=== PATIENT | male | born 1970 | race Two or more races ===

== ENCOUNTER 2018-09-06 07:55 | Emergency (ER) | payer BC ==
[2018-09-06 08:09] VITALS: BP 129/81
--- NOTE | 2018-09-06 13:38 | UC ---
Skin Complaint HPI - HPI Summary HPI Summary: PATIENT WORKS FOR [employer]. HE FOUND A TICK ON THE LEFT SIDE OF HIS BACK OVER A WEEK AGO. REMOVED IT AND [facility] SENT IT FOR TESTING. TICK CAME BACK POSITIVE FOR BORRELIA BURGDORFERI AND ANAPLASMA PHAGOCITOPHILUM. NEGATIVE FOR BABESIA MICROTI. IT HAS BEEN ONE WEEK SINCE THE TICK WAS REMOVED. PATIENT WAS SENT BY [employer] FOR EVALUATION FOR TREATMENT. NO FEVER, BODY ACHES, RASH, HEADACHE. - History of Current Complaint Chief Complaint: UCSkin Time Seen by Provider: 09/06/18 08:14 Stated Complaint: TICK BITE Hx Obtained From: Patient Current Severity: None Pain Intensity: 0 Pain Scale Used: 0-10 Numeric Aggravating Factor(s): Nothing Associated Signs & Symptoms: Positive: Negative - Allergy/Home Medications Allergies/Adverse Reactions: Allergies Allergy/AdvReac Type Severity Reaction Status Date / Time No Known Allergies Allergy Verified 09/06/18 08:10 Home Medications: Home Medications NK [No Home Medications Reported] 09/06/18 [History Confirmed 09/06/18] PMH/Surg Hx/FS Hx/Imm Hx Previously Healthy: Yes - Surgical History Surgical History: Yes Surgery Procedure, Year, and Place: 1999- [facility] - ACL RECON. - Family History Known Family History: Positive: Non-Contributory - Social History Alcohol Use: Weekly Substance Use Type: None Smoking Status (MU): Never Smoked Tobacco Review of Systems All Other Systems Reviewed And Are Negative: Yes Constitutional: Positive: Negative Skin: Positive: Negative Respiratory: Positive: Negative Cardiovascular: Positive: Negative Gastrointestinal: Positive: Negative Musculoskeletal: Positive: Negative Neurological: Positive: Negative Physical Exam Triage Information Reviewed: Yes Appearance: Well-Appearing, No Pain Distress, Well-Nourished Vital Signs: Initial Vital Signs Temp 98.8 F 09/06/18 08:02 Pulse 58 09/06/18 08:02 Resp 18 09/06/18 08:02 BP 129/81 09/06/18 08:02 Pulse Ox 99 09/06/18 08:02 Vital Signs Reviewed: Yes Eyes: Positive: Conjunctiva Clear ENT: Positive: Hearing grossly normal, Pharynx normal, TMs normal Neck: Positive: Supple, Nontender, No Lymphadenopathy Respiratory Exam: Normal Cardiovascular Exam: Normal Abdomen Description: Positive: Soft Musculoskeletal: Positive: No Edema Neurological: Positive: Alert Psychological: Positive: Age Appropriate Behavior Skin: Negative: Rashes Course/Dx - Course Course Of Treatment: COUNSELED PT EXTENSIVELY ON LOW RISK OF [place] LYME DISEASE FROM THIS TICK DESPITE POSITIVE FOR BORRELIA AND ANAPLASMA GIVEN IT WAS ATTACHED FOR LESS THAN A DAY. BE VIGILANT OF SX OVER THE NEXT 4-6 WEEKS. PT DOES NOT MEET CRITERIA FOR PROPHYLAXIS WITH DOXY. WOULD NOT GIVE FULL TREATMENT REGIMEN GIVEN PT ASYTMPTOMATIC. ALL QUESTIONS ANSWERED AND PT COMFORTABLE WITH CAREFUL OBSERVATION AT HOME. BLOOD DRAWN FOR LYME SEROLOGY AND ANAPLASMA PCR PER PT REQUEST. - Diagnoses Provider Diagnosis: Tick bite of back Discharge - Sign-Out/Discharge Documenting (check all that apply): Patient Departure All imaging exams completed and their final reports reviewed: No Studies - Discharge Plan Condition: Stable Disposition: HOME Patient Education Materials: Tick Bite (ED) Referrals: Iza WYATT,Jonel Raman [Medical Doctor] - If Needed Raymundo Hernandez DO [Primary Care Provider] - If Needed Additional Instructions: The Infectious Disease Society of [place] (IDSA) does not generally recommend antimicrobial prophylaxis for prevention of Lyme disease after a recognized tick bite. However, in areas that are highly endemic for Lyme disease, a single dose of doxycycline may be offered to adult patients (200 mg) who are not and to children older than 8 years of age (4 mg/kg up to a maximum dose of 200 mg) when all of the following circumstances exist: CRITERIA FOR RECEIVING PROPHYLACTIC TREATMENT FOR LYME DISEASE 1) TICK ATTACHED FOR AT LEAST 36 HRS 2) TICK IS AN ADULT OR [place] DEER TICK 3) YOU LIVE IN AN AREA WHERE LYME DISEASE IS PREVALENT (i.e., [place], [place], [place], , [place] , [place], [place], [place], [place], [place], [place], [place], [place], [place]) 4) YOU HAVE NO CONTRAINDICATION TO THE MEDICATION (DOXYCYCLINE) 5) PROPHYLAXIS IS BEGUN WITHIN 72 HRS OF TICK REMOVAL SINCE YOU DO NOT MEET ALL THESE CRITERIA THERE IS NO INDICATION TO GIVE YOU PROPHYLACTIC ANTIBIOTICS. HOWEVER, 1 TICK MEANS THERE MAY HAVE BEEN OTHER TICKS OF WHICH YOU WEREN'T AWARE. SO BE VIGILANT OF YOUR SYMPTOMS AND DON'T HESITATE TO GET SEEN AGAIN IF YOU DEVELOP UNEXPLAINED FEVER, HEADACHE, JOINT PAIN, BODY ACHES, RASH OR ANY OTHER CONCERNING SYMPTOMS. Antibiotic treatment following a tick bite is not recommended as a means to prevent anaplasmosis, babesiosis, ehrlichiosis, or [place] spotted fever. There is no evidence this practice is effective, and it may simply delay onset of disease. Instead, persons who experience a tick bite should be alert for symptoms suggestive of tickborne illness and consult a physician if fever, rash, headache or other symptoms of concern develop. BLOOD DRAWN FOR LYME DISEASE AND ANAPLASMA TODAY. WE WILL CALL YOU IF YOU NEED TREATMENT. IF THE LYME SCREEN COMES BACK POSITIVE AND YOU ARE STILL ASYMPTOMATIC I WOULD RECOMMEND WAITING FOR THE CONFIRMATORY TESTING BEFORE BEING TREATED THE CONFIRMATORY TEST MAY BE NEGATIVE. I WOULD NOT RECOMMEND HAVING TICKS TESTED IT CAN RAISE UNNECESSARY CONCERN. - Billing Disposition and Condition Condition: STABLE Disposition: Home
[2018-09-08 00:51] LABS: Anaplasma phagocytophilum Negative (Negative); Ehrlichia chaffeensis Negative (Negative); Ehrlichia ewingii/canis Negative (Negative); Ehrlichia muris eauclairensis Negative (Negative)
--- NOTE | 2018-09-08 07:30 | UC ---
- Progress Note Progress Note: Non-urgently actionable. F/u PCP as scheduled. Course/Dx - Diagnoses Provider Diagnoses: Tick bite of back Discharge - Sign-Out/Discharge Documenting (check all that apply): Post-Discharge Follow Up All imaging exams completed and their final reports reviewed: No Studies - Discharge Plan Condition: Stable Disposition: HOME Patient Education Materials: Tick Bite (ED) Referrals: Iza WYATT,Jonel Raman [Medical Doctor] - If Needed Raymundo Hernandez DO [Primary Care Provider] - If Needed Additional Instructions: The Infectious Disease Society [place] (IDSA) does not generally recommend antimicrobial prophylaxis for prevention of Lyme disease after a recognized tick bite. However, in areas that are highly endemic for Lyme disease, a single dose of doxycycline may be offered to adult patients (200 mg) who are not and to children older than 8 years of age (4 mg/kg up to a maximum dose of 200 mg) when all of the following circumstances exist: CRITERIA FOR RECEIVING PROPHYLACTIC TREATMENT FOR LYME DISEASE 1) TICK ATTACHED FOR AT LEAST 36 HRS 2) TICK IS AN ADULT OR [place] DEER TICK 3) YOU LIVE IN AN AREA WHERE LYME DISEASE IS PREVALENT (i.e., [place], [place], [place], , [place] , [place], [place], [place], [place], [place], [place], [place], [place], [place]) 4) YOU HAVE NO CONTRAINDICATION TO THE MEDICATION (DOXYCYCLINE) 5) PROPHYLAXIS IS BEGUN WITHIN 72 HRS OF TICK REMOVAL SINCE YOU DO NOT MEET ALL THESE CRITERIA THERE IS NO INDICATION TO GIVE YOU PROPHYLACTIC ANTIBIOTICS. HOWEVER, 1 TICK MEANS THERE MAY HAVE BEEN OTHER TICKS OF WHICH YOU WEREN'T AWARE. SO BE VIGILANT OF YOUR SYMPTOMS AND DON'T HESITATE TO GET SEEN AGAIN IF YOU DEVELOP UNEXPLAINED FEVER, HEADACHE, JOINT PAIN, BODY ACHES, RASH OR ANY OTHER CONCERNING SYMPTOMS. Antibiotic treatment following a tick bite is not recommended as a means to prevent anaplasmosis, babesiosis, ehrlichiosis, or [place] spotted fever. There is no evidence this practice is effective, and it may simply delay onset of disease. Instead, persons who experience a tick bite should be alert for symptoms suggestive of tickborne illness and consult a physician if fever, rash, headache or other symptoms of concern develop. BLOOD DRAWN FOR LYME DISEASE AND ANAPLASMA TODAY. WE WILL CALL YOU IF YOU NEED TREATMENT. IF THE LYME SCREEN COMES BACK POSITIVE AND YOU ARE STILL ASYMPTOMATIC I WOULD RECOMMEND WAITING FOR THE CONFIRMATORY TESTING BEFORE BEING TREATED THE CONFIRMATORY TEST MAY BE NEGATIVE. I WOULD NOT RECOMMEND HAVING TICKS TESTED IT CAN RAISE UNNECESSARY CONCERN. - Billing Disposition and Condition Condition: STABLE Disposition: Home
== END 2018-09-06 09:09 | disposition home or self-care (01) ==
LOC: UCEAST 07:55
DX: S20.462A Insect bite (nonvenomous) of left back wall of thorax, initial encounter (principal); W57.XXXA Bitten or stung by nonvenomous insect and other nonvenomous arthropods, initial encounter; Y92.9 Unspecified place or not applicable
CPT/HCPCS: 36415; 86618; 87798; 99211; G0463

== ENCOUNTER 2019-03-12 10:10 | Emergency (ER) | payer SELFPAY ==
[2019-03-12 10:18] VITALS: BP 115/69
--- NOTE | 2019-03-12 10:27 | UC ---
Bite Injury/Animal HPI - HPI Summary HPI Summary: 48-year-old male comes in with a chief complaint of tick bite to the right forearm. He was on yesterday and was taken off and he believes are still also mouthparts and there. No rash or fevers no chills feels well otherwise. Not sure how long it was in there he thinks it was a brief time. - History of Current Complaint Chief Complaint: UCSkin Stated Complaint: TICK BITE Time Seen by Provider: 03/12/19 10:19 Pain Intensity: 0 - Allergies/Home Medications Allergies/Adverse Reactions: Allergies Allergy/AdvReac Type Severity Reaction Status Date / Time No Known Allergies Allergy Verified 03/12/19 10:18 PMH/Surg Hx/FS Hx/Imm Hx Previously Healthy: Yes - Surgical History Surgical History: Yes Surgery Procedure, Year, and Place: 1999- [facility] - ACL RECON. - Family History Known Family History: Positive: Non-Contributory - Social History Alcohol Use: Weekly Substance Use Type: None Smoking Status (MU): Never Smoked Tobacco Review of Systems All Other Systems Reviewed And Are Negative: Yes Constitutional: Positive: Negative Skin: Positive: Other - see hpi Eyes: Positive: Negative ENT: Positive: Negative Respiratory: Positive: Negative Cardiovascular: Positive: Negative Gastrointestinal: Positive: Negative Motor: Positive: Negative Neurovascular: Positive: Negative Musculoskeletal: Positive: Negative Neurological: Positive: Negative Psychological: Positive: Negative Is Patient Immunocompromised?: No Physical Exam Triage Information Reviewed: Yes Appearance: Well-Appearing, No Pain Distress, Well-Nourished Vital Signs: Initial Vital Signs Temp 96.7 F 03/12/19 10:15 Pulse 66 03/12/19 10:15 Resp 16 03/12/19 10:15 BP 115/69 03/12/19 10:15 Pulse Ox 98 03/12/19 10:15 Vital Signs Reviewed: Yes Eye Exam: Normal Eyes: Positive: Conjunctiva Clear Neck: Positive: Supple Respiratory: Positive: No respiratory distress Musculoskeletal: Positive: Strength Intact, ROM Intact Neurological: Positive: Alert Psychological: Positive: Age Appropriate Behavior Skin: Positive: Other - On the right forearm there is a 1 mm dark area in the skin with minimal erythema surrounding it. No bull's-eye rash. The 1 mm dark areas not raised. Bite Injury Course/Dx - Course Course Of Treatment: The remaining foreign body is not above the skin level and not amenable to further removal. We'll treat with doxycycline 200 mg single dose. Patient she get reevaluated as any signs of Lyme disease. - Differential Dx/Diagnosis Provider Diagnosis: Tick bite of right forearm Discharge ED - Sign-Out/Discharge Documenting (check all that apply): Patient Departure All imaging exams completed and their final reports reviewed: No Studies - Discharge Plan Condition: Stable Disposition: HOME Prescriptions: DOXYcycline CAP(*) [DOXYcycline 100MG CAP(*)] 200 mg PO ONCE #2 cap Patient Education Materials: Tick Bite (ED) Referrals: Raymundo Hernandez DO [Primary Care Provider] - Additional Instructions: FOLLOW UP WITH YOUR DOCTOR IF NOT COMPLETELY IMPROVED. GET RECHECKED SOONER IF YOUR CONDITION WORSENS; BULLS EYE RASH, SYMPTOMS OF LYME DISEASE OR ANY QUESTIONS OR CONCERNS. - Billing Disposition and Condition Condition: STABLE Disposition: Home
== END 2019-03-12 10:33 | disposition home or self-care (01) ==
LOC: UCEAST 10:10
DX: S50.861A Insect bite (nonvenomous) of right forearm, initial encounter (principal); W57.XXXA Bitten or stung by nonvenomous insect and other nonvenomous arthropods, initial encounter; Y92.9 Unspecified place or not applicable
CPT/HCPCS: 99212; G0463